=== PATIENT | male | born 1985 | race Two or more races ===

== ENCOUNTER 2024-02-27 07:18 | Emergency (ER) | payer MEDICAID, SELFPAY ==
[2024-02-27 07:24] VITALS: BP 132/71; PULSE 77; RESP 16; TEMP 36.9; O2SAT 100; BMI 23.3
--- NOTE | 2024-02-27 07:36 | XR_ITS ---
Examination: Lumbar spine 3 views Technique one AP lateral coned lateral lower lumbar spine 3 views Exam date and time: February 27, 2024 0756 hrs. Indications: Lower back pain beginning 9 days ago. Findings: Adequate alignment lumbar vertebral bodies Moderate disc during L5-S1 No lumbar fracture No spondylolisthesis Impression: Moderate disc narrowing L5-S1
[2024-02-27] MEDS: GABAPENTIN 300 MG CAPSULE PO (07:49)
[2024-02-27] MEDS: MethylPREDNISolone SOD SUCC 62.5 MG/ML 2ML VIAL 125 MG IM (07:50)
--- NOTE | 2024-02-27 08:18 | PD.EDBACK ---
ED Back Injury Pain RME/HPI General Chief Complaint: Back Pain/Injury Stated Complaint: BACK PAIN; SEEN ER 9 DAYS AGO; SEE PRIMARY TUES Time Seen by Provider: 02/27/24 07:23 Source: patient Arrival date/time: 02/27/24 07:18 38M with with no significant past medical history presents to ED with several days of low back pain and soreness. Patient works in the [employer]. Patient denies fall/trauma, dysuria/hematuria, sudden onset, paresthesia, and bowel/bladder incontinence. Patient does report he was evaluated in the emergency department approximately 9 days ago and was given medication for pain he did follow-up with his PCP in which she was prescribed Flexeril and ibuprofen states his pain is still localized in the lower back and radiates to bilateral buttocks. Patient states his pain is 6 out of 10 despite the use of medication. Denies any abdominal pain, no suprapubic pelvic pain, no dysuria hematuria. Limitations no limitations Mode of arrival: ambulatory Limitations: no limitations Related Data Home Medications ?Medication ?Instructions ?Recorded ?Confirmed omeprazole 20 mg capsule,delayed 20 mg PO QDAY ##0 04/30/15 release (Prilosec) Previous Rx's ?Medication ?Instructions ?Recorded aluminum-mag hydroxide-simethicone 5 ml PO QID PRN indigestion #355 mL 07/09/21 400 mg-400 mg-40 mg/5 mL oral susp (Advanced Antacid-Antigas) ondansetron 4 mg disintegrating 4 mg PO Q8H PRN nausea and 07/09/21 tablet vomiting #10 tabs bisacodyl 5 mg tablet,delayed 10 mg (2 x 5 mg) PO QDAY PRN 09/13/22 release (Dulcolax (bisacodyl)) constipation #10 tabs lactulose 20 gram oral packet 20 g PO BID PRN constipation #30 ea 09/13/22 gabapentin 300 mg capsule 300 mg PO Q8H #30 caps 02/27/24 Allergies Allergy/AdvReac Type Severity Reaction Status Date / Time No Known Allergies Allergy Verified 02/27/24 07:20 Review of Systems Review of Systems Systems Reviewed: All systems reviewed, normal except as documented Narrative Review of Systems: Gen: No fever, no chills, no weight loss EYES: No discharge, no visual changes, no pain HEENT: No ear pain, no congestion, no sore throat PULM: No shortness of breath, no cough, no congestion CV: No chest pain, no dyspnea on exertion, no palpitations GI: No nausea, no vomiting, no diarrhea, no pain, no constipation : No frequency, no urgency,? no dysuria Musc/skel: No joint pain, ++ back pain Skin: No rash? Psyc: No hallucinations, no depression Heme/Lymph: No easy bleeding or bruising tendencies Neuro: No weakness, no headache ED Exam General Limitations: Present no limitations General appearance: Present alert and in no apparent distress Head Head exam: Present atraumatic Eye Eye exam: Present normal appearance, PERRL and EOMI ENT ENT exam: Present normal exam, normal oropharynx and mucous membranes moist Neck Neck exam: Present normal inspection, full ROM and trachea midline Chest Chest inspection: Present normal inspection and symmetric chest wall rise Respiratory Respiratory exam: Present normal lung sounds bilaterally Cardiovascular Cardiovascular exam: Present regular rate, normal rhythm and normal heart sounds Abdominal Exam Abdominal exam: Present soft and normal bowel sounds Extremities Exam Extremities exam: Present normal inspection and full ROM Back Exam Back exam: Present full ROM, tenderness, muscle spasm and paraspinal tenderness; Absent CVA tenderness (R), CVA tenderness (L) or rashes Neurological Exam Neurological exam: Present alert, oriented X3 and CN II-XII intact Psychiatric Psychiatric exam: Present normal affect and normal mood Skin Skin exam: Present warm, dry, intact and normal color Course Quality Measures none Orders Category Date Time Status XR lumbar spine 2-3V Stat Exams 02/27/24 07:36 Completed Gabapentin [Neurontin] Med 02/27/24 07:37 Discontinued 300 mg PO X1 ONE MethylPREDNISolone.* [SoluMEDROL Inj] Med 02/27/24 07:36 Discontinued 125 mg IM X1 ONE Vital Signs Vital signs: Vital Signs Temperature 98.5 F 02/27/24 07:24 Pulse Rate 77 02/27/24 07:24 Respiratory Rate 16 02/27/24 07:24 Blood Pressure 132/71 H 02/27/24 07:24 Pulse Oximetry (%) 100 02/27/24 07:24 Oxygen Delivery Method Room Air 02/27/24 07:24 Back Pain / Injury MDM Narrative MDM Narrative:: 38-year-old male here in ED for complaints of several days of low back pain and soreness. Patient works in the [employer]. Patient denies fall/trauma, dysuria/hematuria, sudden onset, paresthesia, and bowel/bladder incontinence. Patient has been taking ibuprofen and Flexeril at home with no relief of symptoms. An x-ray was obtained which demonstrates a mild to moderate disc disease. Patient was given Solu-Medrol shot, and gabapentin while in ED. No fever, weakness, abdominal pain, saddle anesthesia, bowel/bladder incontinence noted. No hx of IVDA. Gait and sensation intact. No signs of emergent pathology at this time. Low suspicion for emergent etiology such as epidural abscess or spinal cord compression/cauda equina. . Gave meds while in ED. Pain went from 10 to 5 after meds. Vitals improved as well. Likely chronic back pain. Advised that he will need to have his PCP follow-up on evaluation might need outpatient MRI if pain consists or physical therapy. Patient data External records reviewed:: [facility] previous records Clinical information provided by:: patient Social determinants that could affect healthcare access:: none Patient has the following chronic illnesses:: none How is presenting disease/condition affected by chronic disease/condition?: no chronic disease Evaluation data The following diagnostics were reviewed and interpreted by me:: other (specify) (none) Lab and/or radiology exams considered but not ordered:: not ordered Interpretation Summary: Examination: Lumbar spine 3 views Technique one AP lateral coned lateral lower lumbar spine 3 views Exam date and time: February 27, 2024 0756 hrs. Indications: Lower back pain beginning 9 days ago. Findings: Adequate alignment lumbar vertebral bodies Moderate disc during L5-S1 No lumbar fracture No spondylolisthesis Impression: Moderate disc narrowing L5-S1 Medications / Prescriptions Medications or Prescriptions considered but not ordered:: not ordered Medication administrations:: Medication Administration History Discontinued Medications Gabapentin (Gabapentin 300 Mg Capsule) 300 mg PO X1 ONE Stop: 02/27/24 07:38 Last Admin: 02/27/24 07:49 Dose: 300 mg Documented By: EDITA Methylprednisolone Sodium Succinate (Methylprednisolone Sod Succ 62.5 Mg/Ml 2ml Vial) 125 mg IM X1 ONE Stop: 02/27/24 07:37 Last Admin: 02/27/24 07:50 Dose: 125 mg Documented By: EDITA n/a Consultations Consultation(s) initiated? (list below): No Diagnosis Differential diagnosis back pain/injury: lumbar radiculopathy, sciatica, strain of lumbar region, renal colic, pyelonephritis, thoracic back pain, AAA and discitis Most likely diagnosis given after review of the tests above:: strain of lumbar region Admission Indicated Admission indicated?: not indicated Admission Request Was there a request for admission?: No Disposition Plan Disposition Plan: Discharge Discharge Attestation Discharge Attestation: The patient and all family members were given an opportunity to ask questions and understood the discharge instructions. Discharge instructions specifically effects, indications for sooner follow up or return to the emergency department, and the expected course of current diagnosis. Patient condition: Stable Discharge Plan Plan Patient Disposition: HOME (Self Care) Patient condition on transfer: Stable Prescriptions/Referrals Prescriptions/Med Rec: New gabapentin 300 mg capsule 300 mg PO Q8H Qty: 30 0RF No Action omeprazole [Prilosec] 20 MG capsule,delayed release(DR/EC) 20 mg PO QDAY Qty: 0 Patient Comments: TO [employer] alum-mag hydroxide-simeth [Advanced Antacid-Antigas] 400-400-40 mg/5 mL suspension 5 ml PO QID PRN (Reason: indigestion) Qty: 355 0RF ondansetron 4 mg tablet,disintegrating 4 mg PO Q8H PRN (Reason: nausea and vomiting) Qty: 10 0RF bisacodyl [Dulcolax (bisacodyl)] 5 mg tablet,delayed release (DR/EC) 10 mg PO QDAY PRN (Reason: constipation) Qty: 10 0RF lactulose 20 gram packet 20 g PO BID PRN (Reason: constipation) Qty: 30 0RF Referrals: No Primary/Family,Physician [Primary Care Provider] - In 1 week Problem List Clinical Impression: Lumbar back pain, Degenerative disc disease at L5-S1 level Patient/Caregiver Discharge Instructions Discharge Activity: activity as tolerated Education Materials: ED Degenerative Disk Disease Additional Instructions: Se aconseja al paciente tratamiento no farmacol?gico con calor superficial, masajes, acupuntura o manipulaci?n greene. Si se desea un tratamiento farmacol?gico, stephon buena opci?n son los f?rmacos antiinflamatorios no esteroides (RUBIO) o los relajantes del m?sculo esquel?nelly. Inform? al paciente que la fisioterapia a menudo se incorpora marlee un componente de la terapia conservadora. Se recomienda iniciar medicamentos de: Gabapentina continuar Flexeril e ibuprofeno -Necesitar? stephon visita de seguimiento con jones m?dico en 2 a 3 d?as para recibir atenci?n de seguimiento Podr?a necesitar fisioterapia Es posible que sea necesario derivarlo para stephon resonancia magn?terence ambulatoria. Se pueden usar im?genes de diagn?stico (marlee la resonancia magn?terence) para evaluar la extensi?n del disco abultado, especialmente si los s?ntomas empeoran o persisten. kyrgyz Advised patient of nonpharmacologic treatment with superficial heat, massage, acupuncture, or spinal manipulation If pharmacologic treatment is desired, good choice is nonsteroidal anti-inflammatory drugs (NSAIDs) or skeletal muscle relaxants. Advised patient that Physical therapy is often incorporated as a component of conservative therapy Advised to start medications of: Gabapentin continue Flexeril and Ibuprofen -Will need to follow-up with your doctor in 2 to 3 days for follow-up care Might need physical therapy Might need referral for MRI outpatient, Diagnostic imaging (like MRI) might be used to assess the extent of the bulging disc, particularly if symptoms worsen or persist. 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
== END 2024-02-27 09:20 | disposition home or self-care (01) ==
PROVIDERS: Emergency Provider Emergency Medicine
DX: M51.360 Other intervertebral disc degeneration, lumbar region with discogenic back pain only (principal); M48.061 Spinal stenosis, lumbar region without neurogenic claudication
CPT/HCPCS: 72100; 96372; 99283; J2919; A9270